=== PATIENT | female | born 1940 | race African-American/Black ===

== ENCOUNTER 2018-04-30 19:27 | Emergency (ER) | payer OTHER ==
[~2018-04-30] VITALS: Ht 172.7 cm; Wt 96.2 kg
[2018-04-30 20:52] LABS: Urine Bacteria NONE SEEN /hpf (None Seen); Urine Blood Negative /uL (Negative); Urine Hyaline Cast FEW /lpf (0 - 2); Urine Specific Gravity 1.019 (1.001-1.035); Urine WBC 82 /hpf (0 - 5)
[2018-04-30 21:20] LABS: Basophils # (auto) 0 uL; Hematocrit 23.7 % (36.0-46.0); Hemoglobin 7.7 g/dL (12.2-16.2); Lymphocytes # (auto) 0.5 uL; Mean Corpuscular Hgb Conc. 32.6 g/dL (32.0-36.0); Monocytes # (auto) 0.6 uL; Neutrophils # (auto) 2.1 uL; White Blood Cell 3.5 10^3/uL (4.4-10.8)
[2018-04-30 21:22] LABS: Basophils % (auto) 0.9 % (0.0-2.0); Eosinophils # (auto) 0.3 uL; Eosinophils % (auto) 7.3 % (0.0-7.0); Lymphocytes % (auto) 15.4 % (10.0-50.0); Mean Corpuscular Volume 85.8 fL (80.0-100.0); Monocytes % (auto) 17.8 % (0.0-12.0); Neutrophils % (auto) 58.6 % (37.0-80.0); Platelet Count (auto) 156 10^3/uL (140-450); Red Blood Cells 2.77 10^6/uL (4.0-5.20); Red Cell Distribution Width 16.8 % (11.8-14.3)
[2018-04-30 21:33] LABS: INR 1.23 (0.9-1.15); Partial Thromboplastin Time 24.6 sec (23.78-33.04)
[2018-04-30 21:42] LABS: Albumin 3.7 g/dL (3.4-5.0); Calcium 8.6 mg/dL (8.5-10.1); Potassium 4.4 mmol/L (3.5-5.1)
[2018-04-30 21:44] LABS: Bilirubin, Total 0.4 mg/dL (0.2-1.0); Total Protein 7.9 g/dL (6.4-8.2)
[2018-05-01] MEDS ORDERED: SODIUM CHLORIDE 0.9% 1,000 ML IV SCH (09:43)
[2018-05-01] MEDS ORDERED: NITROGLYCERIN 0.4 MG SL TAB SL PRN (09:45)
[2018-05-01] MEDS ORDERED: PROMETHAZINE HCL 25 MG/ML 1ML IV PRN (09:45)
[2018-05-01] MEDS ORDERED: HYDROcodone-ACET 5/325MG TAB PO PRN (09:45)
[2018-05-01] MEDS ORDERED: cefTRIAXone 1GM/50ML D5W 50 ML IV ONE (09:45)
[2018-05-01] MEDS ORDERED: PANTOPRAZOLE 40 MG/10 ML VIAL IV ONE (09:45)
[2018-05-01] MEDS ORDERED: MORPHINE SULFATE 4 MG/ML SYR/VIAL IV PRN ×2 (09:45)
[2018-05-01] MEDS ORDERED: LORazepam 0.5 MG TAB PO PRN (09:45)
[2018-05-01] MEDS ORDERED: TEMAZEPAM 15 MG CAP PO PRN (09:45)
[2018-05-01] MEDS ORDERED: ACETAMINOPHEN 500 MG TAB PO PRN (09:45)
[2018-05-01] MEDS ORDERED: LACTULOSE 20Gm/30ML SOLN PO PRN (09:45)
[2018-05-01] MEDS ORDERED: PANTOPRAZOLE 40 MG TAB PO SCH (10:00)
[2018-05-01 10:12] VITALS: BP 165/71
[2018-05-01] MEDS ORDERED: PHYTONADIONE ORAL Susp 10 mg/10ml PO ONE (10:15)
[2018-05-01] MEDS ORDERED: metroNIDAZOLE 500MG/100ML 100 ML IV SCH (14:00)
[2018-05-02] MEDS ORDERED: cefTRIAXone 1GM/50ML D5W 50 ML IV SCH (09:00)
[2018-05-03] MEDS ORDERED: LOSA-46 PO (09:14)
[2018-05-03] MEDS ORDERED: CYA100I IM (09:14)
[2018-05-03] MEDS ORDERED: FURO20TA3 PO (09:14)
[2018-05-03] MEDS ORDERED: SIMV-8 PO (09:14)
[2018-05-03] MEDS ORDERED: FERR-7 PO (09:14)
[2018-05-03] MEDS ORDERED: ASPI81TA27 PO (09:14)
[2018-05-03] MEDS ORDERED: MULTCAP45 PO (09:14)
== END 2018-05-01 11:45 | disposition left against medical advice (07) ==
LOC: ER 19:38
DX: K92.2 Gastrointestinal hemorrhage, unspecified (principal); N28.9 Disorder of kidney and ureter, unspecified; K64.9 Unspecified hemorrhoids; E78.5 Hyperlipidemia, unspecified; I10 Essential (primary) hypertension
CPT/HCPCS: 36415; 74176; 80053; 81001; 82378; 85025; 85045; 85610; 85652; 85730; 86141; 87086

== ENCOUNTER 2019-01-02 12:16 | Emergency (ER) | payer OTHER ==
[~2019-01-02] VITALS: Ht 172.7 cm; Wt 81.6 kg
[~2019-01-02 12:16] MED LIST: CYA100I IM; FERR-7 PO; FURO20TA3 PO; LOSA-69 PO; MULTCAP45 PO; SIMV-8 PO
[2019-01-02 13:39] VITALS: BP 176/86
== END 2019-01-02 14:59 | disposition home or self-care (01) ==
LOC: ER 12:21
DX: T78.40XA Allergy, unspecified, initial encounter (principal); L23.9 Allergic contact dermatitis, unspecified cause; E78.00 Pure hypercholesterolemia, unspecified; I10 Essential (primary) hypertension; Z79.899 Other long term (current) drug therapy; Z88.8 Allergy status to other drugs, medicaments and biological substances; Z91.018 Allergy to other foods